=== PATIENT | female | born 1990 | race African-American/Black ===

== ENCOUNTER 2025-01-17 16:28 | Emergency (ER) | payer MEDICAID, SELFPAY ==
--- OUTSIDE RECORDS SUMMARY | 2025-01-17 16:31 | XMS_ITS | Referral Summary ---
Author Organization [facility] Address [address] [place] [address] Care Team Providers Care Equalizing Saw Operator Name Role Phone Karol García DANIEL Primary Care Provider [phone] Encounters Date Type Department Care Team Description 12/08/2024 10:19 AM CDT - 12/08/2024 10:48 AM CDT Emergency [facility] Emergency Department [address] [place] [id number] Fall, initial encounter (Primary Dx); Contusion of sacrum, initial encounter Discharge Disposition: Discharge to home or self care from Last 3 Months Allergies Active Allergy Reactions Criticality Noted Date Comments Losartan Dizziness Low 01/13/2022 Penicillins Rash Medium 01/13/2022 Medications polyethylene glycol (MIRALAX) 17 gram/dose powder Take 17 g by mouth daily 235 g 01/14/20 22 Active ipratropium-albut Agusto (DUO-NEB) 0.5-2.5 mg/3 mL nebulizer solutionIndicatio ns:Chronic Obstructive Pulmonary Disease with Bronchospasms Take 3 mL by nebulization every 4 (four) hours as needed for wheezing 120 mL 09/07/19 23 Active ketorolac (TORADOL) 10 mg tablet Take 1 tablet (10 mg total) by mouth every 6 (six) hours as needed for pain 20 tablet 03/21/20 24 Active cyclobenzaprine (FLEXERIL) 10 mg tablet Take 1 tablet (10 mg total) by mouth 3 (three) times a day as needed for muscle spasms 30 tablet 03/21/20 24 Active ketorolac (TORADOL) 10 mg tablet Take 1 tablet (10 mg total) by mouth every 6 (six) hours as needed for pain 20 tablet 12/09/19 25 Active acetaminophen (TYLENOL) 500 mg tablet Take 2 tablets (1,000 mg total) by mouth every 6 (six) hours as needed for pain 30 tablet 12/09/19 25 Active Active Problems No known active problems Social History Tobacco Use Types Packs/Day Years Used Date Smoking Tobacco: Never Tobacco Cessation:Counseling Given: Not Answered Alcohol Use Standard Drinks/Week Comments Not Currently 0 (1 standard drink = 0.6 oz pur e alcohol) socially Personal Safety Answer Date Recorded Have you ever been in or are you currently in a harmful physical or emotional relationship or is someone making you feel afraid or unsafe? Denies 12/08/2024 Comments No Sex and Gender Information Value Date Recorded Sex Assigned at Not on file Legal Sex Female 5:35 PM LINE CONSTRUCTION SUPERVISOR Gender Identity Female 10/16/2023 7:57 PM LINE CONSTRUCTION SUPERVISOR Sexual Orientation Straight 10/16/2023 7: 57 PM LINE CONSTRUCTION SUPERVISOR Last Filed Vital Signs Vital Sign Reading Time Taken Comments Blood Pressure 141/84 12/08/2024 10:46 AM CDT Pulse 65 12/08/2024 10:46 AM CDT Temperature 36.7 C (98.1 F) 12/08/2024 9:03 AM CDT Respiratory Rate 18 12/08/2024 10:4 6 AM CDT Oxygen Saturation 96% 12/08/2024 10: 46 AM CDT Inhaled Oxygen Concentration - - Weight 157.8 kg (347 lb 14.2 oz) 12/08/2024 9:03 AM CDT Height 172.7 cm (5' 8 ) 12/08/2024 9:03 AM CDT Body Mass Index 52.9 12/08/2024 9:03 AM CDT Plan of Treatment Not on file Procedures Procedure Name Priority Date/Time Associated Diagnosis Comments XR SACRUM COCCYX 2 OR MORE VIEWS ED 12/08/2024 9:35 AM CDT XR SPINE LUMBAR 2 OR 3 VIEWS ED 12/08/2024 9:35 AM CDT POCT GLUCOSE DEVICE Routine 12/08/2024 9 :06 AM CDT from Last 3 Months Results * XR Sacrum Coccyx 2 or More Views (12/08/2024 9:35 AM CDT) Anatomical Region Laterality Modality Pelvis, Body N/A Computed Radiogr aphy 12/08/2024 9:38 AM CDT Narrative 12/08/2024 9:40 AM CDT EXAM DESCRIPTION: XR SACRUM COCCYX 2 OR MORE VIEWS; XR SPINE LUMBAR 2 OR 3 VIEWS REASON FOR STUDY: pain Came to ED s/p fall last night. Reports was at work, sat in chair, and chair collapsed. C/o pain to tail bone and lower back. TECHNIQUE: XR SACRUM COCCYX 2 OR MORE VIEWS; XR SPINE LUMBAR 2 OR 3 VIEWS COMPARISON: CT abdomen and pelvis 01/13/2022. FINDINGS: Sacrum: Arcuate lines of the sacrum are intact. The sacroiliac joints and pubic symphysis maintained. The obturator rings are intact. No displaced sacral or coccygeal fracture is seen. The appearance of the sacrum and coccyx unchanged from the prior CT, the coccygeal segments are non fused. Lumbar spine: Comparison with radiographs from 03/21/2024. There is mild disc space narrowing most pronounced at L4-5 with mild endplate spurring. No fracture or aggressive osseous lesion is seen. Posterior elements are intact. IMPRESSION: No evidence of an acute osseous abnormality of the sacrum or coccyx. Mild lumbar spondylosis most pronounced at L4-5. If symptoms persist despite conservative management, could consider CT imaging. THIS IS AN ELECTRONICALLY VERIFIED FINAL REPORT 12/08/2024 9:40 AM - Electronically signed by Jay Jimenez M.D. CH: BEV Report ID: [id number] Reading Location: [id number] Procedure Note Jay Jimenez Jr., MD - 12/08/2024 EXAM DESCRIPTION: XR SACRUM COCCYX 2 OR MORE VIEWS; XR SPINE LUMBAR 2 OR3 VIEWS REASON FOR STUDY: pain Came to ED s/p fall last night. Reports was at work, sat in chair, andchair collapsed. C/o pain to tail bone and lower back. TECHNIQUE: XR SACRUM COCCYX 2 OR MORE VIEWS; XR SPINE LUMBAR 2 OR 3 VIEWS COMPARISON: CT abdomen and pelvis 01/13/2022. FINDINGS: Sacrum: Arcuate lines of the sacrum are intact. The sacroiliac joints and pubic symphysis maintained. The obturator rings are intact.No displaced sacral or coccygeal fracture is seen. The appearance of thesacrum and coccyx unchanged from the prior CT, the coccygeal segments are nonfused. Lumbar spine: Comparison with radiographs from 03/21/2024. There is milddisc space narrowing most pronounced at L4-5 with mild endplate spurring. No fracture or aggressive osseous lesion is seen. Posterior elements areintact. IMPRESSION: No evidence of an acute osseous abnormality of the sacrum or coccyx. Mild lumbar spondylosis most pronounced at L4-5. If symptoms persist despite conservative management, could consider CT imaging. THIS IS AN ELECTRONICALLY VERIFIED FINAL REPORT 12/08/2024 9:40 AM - Electronically signed by Jay Jimenez M.D. CH: BEV Report ID: [id number] Reading Location: [id number] Eden Quan MD IMG XR PROCEDURES Shanon l Result * XR Spine Lumbar 2 or 3 Views (12/08/2024 9:35 AM CDT) Anatomical Region Laterality Modality Spine N/A Computed Radiogr aphy 12/08/2024 9:3 8 AM CDT Narrative 12/08/2024 9:40 AM CDT EXAM DESCRIPTION: XR SACRUM COCCYX 2 OR MORE VIEWS; XR SPINE LUMBAR 2 OR 3 VIEWS REASON FOR STUDY: pain Came to ED s/p fall last night. Reports was at work, sat in chair, and chair collapsed. C/o pain to tail bone and lower back. TECHNIQUE: XR SACRUM COCCYX 2 OR MORE VIEWS; XR SPINE LUMBAR 2 OR 3 VIEWS COMPARISON: CT abdomen and pelvis 01/13/2022. FINDINGS: Sacrum: Arcuate lines of the sacrum are intact. The sacroiliac joints and pubic symphysis maintained. The obturator rings are intact. No displaced sacral or coccygeal fracture is seen. The appearance of the sacrum and coccyx unchanged from the prior CT, the coccygeal segments are non fused. Lumbar spine: Comparison with radiographs from 03/21/2024. There is mild disc space narrowing most pronounced at L4-5 with mild endplate spurring. No fracture or aggressive osseous lesion is seen. Posterior elements are intact. IMPRESSION: No evidence of an acute osseous abnormality of the sacrum or coccyx. Mild lumbar spondylosis most pronounced at L4-5. If symptoms persist despite conservative management, could consider CT imaging. THIS IS AN ELECTRONICALLY VERIFIED FINAL REPORT 12/08/2024 9:40 AM - Electronically signed by Jay Jimenez M.D. CH: Report ID: [id number] Reading Location: [id number] Procedure Note Jay Jimenez Jr., MD - 12/08/2024 EXAM DESCRIPTION: XR SACRUM COCCYX 2 OR MORE VIEWS; XR SPINE LUMBAR 2 OR3 VIEWS REASON FOR STUDY: pain Came to ED s/p fall last night. Reports was at work, sat in chair, andchair collapsed. C/o pain to tail bone and lower back. TECHNIQUE: XR SACRUM COCCYX 2 OR MORE VIEWS; XR SPINE LUMBAR 2 OR 3 VIEWS COMPARISON: CT abdomen and pelvis 01/13/2022. FINDINGS: Sacrum: Arcuate lines of the sacrum are intact. The sacroiliac joints and pubic symphysis maintained. The obturator rings are intact.No displaced sacral or coccygeal fracture is seen. The appearance of thesacrum and coccyx unchanged from the prior CT, the coccygeal segments are nonfused. Lumbar spine: Comparison with radiographs from 03/21/2024. There is milddisc space narrowing most pronounced at L4-5 with mild endplate spurring. No fracture or aggressive osseous lesion is seen. Posterior elements areintact. IMPRESSION: No evidence of an acute osseous abnormality of the sacrum or coccyx. Mild lumbar spondylosis most pronounced at L4-5. If symptoms persist despite conservative management, could consider CT imaging. THIS IS AN ELECTRONICALLY VERIFIED FINAL REPORT 12/08/2024 9:40 AM - Electronically signed by Jay Jimenez M.D. CH: BEV Report ID: [id number] Reading Location: [id number] us Eden Quan MD IMG XR PROCEDURES Shanon l Result * POCT glucose (12/08/2024 9:06 AM CDT) [facility] Signature Glucose, POC 111 70 - 199 mg/dL Comment:Testing performed by : [facility], [address] [place] [address]., [id number] Blood 12/08/2024 9:06 AM CDT 12/08/2024 9:06 AM CDT us Notinfile Unknown LAB POCT ORDERABLES - DEVICE F inal Result [facility] [address] [facility] [place] [address] from Last 3 Months Insurance [facility] [employer] BLUE ACCESS OOS Member Subscriber Plan / Payer (Ef fective 2021-Present) Name:ChaudhariBelen Relation to Subscriber:Self Name:Chaudhari, Belen Orourke Payer ID:[id number] (NAIC) Group ID:[id number] Type:[facility] Address: [address] [employer] BLUE ACCESS OOS Care Teams Equalizing Saw Operator Relationship Specialty Start Date End Date Karol García NP PCP - General 10/26/19
--- OUTSIDE RECORDS SUMMARY | 2025-01-17 16:31 | XMS_ITS | Clinical Summary ---
Author Organization [facility] Address [address] [place] [address] Care Team Providers Care Coke Drawer Hand Name Role Phone Karol García APRN-DOOR CLAMP OPERATOR Primary Care Provider Source Comments [facility],non-owned Affiliates and Associated Physician Practices is amultiple site organization consisting of ambulatory clinics and hospital sitesin [place], [place], [place] and [place]. This disclosure is being madepursuant to the Care Everywhere program and may not contain all information available regarding this patient. Last updated 18.[facility] Allergies Active Allergy Reactions Criticality Noted Date Comments Losartan Dizziness Medium 01/17/2019 Penicillins Cough 09/22/2017 Medications * Be aware that medications may not be up to date on this document. Alwaysverify current medications with the patient. spironolactone (ALDACTONE) 100 MG tablet Take 1 (one) tablet by mouth once daily 9 Active atenolol (TENORMIN) 100 MG tablet Take 1 (one) tablet by mouth once daily Active metFORMIN ER 24hr (GLUCOPHAGE XR) 500MG tablet Take 1 (one) tablet by mouth 3 times daily Active SYMBICORT 160-4.5 MCG/ACT inhaler INHALE 2 PUFFS INTO THE LUNGS TWICE DAILY 1 Active sertraline (Zoloft) 100 MG tablet 2 Active hydrOXYzine pamoate (Vistaril) 25 MG capsule TAKE 1 CAPSULE BY MOUTH THREE TIMES DAILY NEEDED 1 Active albuterol HFA (Proventil; Ventolin; Proair) 108 (90 Base) MCG/ACT inhaler Inhale 1 (one) puff to 2 (two) puffs by mouth every 6 hours as needed 4 Active amLODIPine (Norvasc) 5 MG tablet Take 1 (one) tablet by mouth once daily 4 Active Trulicity 4.5 MG/0.5ML injection Inject 4.5 (four and one-half) mg subcutaneously every 7 days 4 Active fluticasone propionate (Flonase) 50 MCG/ACT nasal spray [place] 1 (one) spray into each nostril as needed 4 Active meclizine (Antivert) 25 MG tablet Take 1 (one) tablet by mouth 3 times daily as needed 4 Active Active Problems Problem Noted Date Diagnosed Date Post-concussion headache 07/11/2019 Environmental and seasonal allergies 11/30/2018 Reactive airway disease 11/30/2018 Allergic rhinitis 03/10/2017 Morbid obesity 02/08/2017 CHLOE (obstructive sleep apnea) 02/08/2017 Encounter for preventive health examination 01/05 Resolved Problems Problem Noted Date Diagnosed Date Resolved Date Asthma exacerbation 02/09/2017 03/09/20 19 Immunizations Immunization Administration Dates Next Due FaceAlerta primary monoval ent 12+ yr 0.3mL Purple cap 06/22/2021 FLU VACCINE QUAD IIV4 SPLIT 0.25 ML IM 5 FLU VACCINE TRI IIV3 SPLIT I M (FLUVIRIN) 06/23/2021 HEP A PED/ADULT VACCINE 07/26/2007 INFLUENZA VACCINE 06/22/2021, 9,06/27/2018,04/22,07/07/2015,07/26/2007 INFLUENZA VACCINE, QUADR. (F LUZONE; FLULAVAL; FLUARIX; AFLURIA QUADRIVALENT; 6MO+), 0.5 ML (IIV4) 07/13/2022,06/27/2018,04/22/2017 MENINGOCOCCAL VACCINE 07/26/2007 PNEUMOCOCCAL PCV20 CONJ VAC IM 11/30/2021 TDAP (7yrs+) 09/25/2010 Td (Adult), 2 Lf Tetanus Tox oid, Adsorbed, Pf 07/26/2007 VARICELLA 07/26/2007 Social History Tobacco Use Types Packs/Day Years Used Date Smoking Tobacco: Never Smokeless Tobacco: Never Tobacco Cessation:Counseling Given: Not Answered Alcohol Use Standard Drinks/Week Comments Yes 0 (1 standard drink = 0.6 oz pur e alcohol) rarely PHQ-2 Answer Date Recorded Patient Health Questionnaire-2 Score 0 12/25/2023 Comments No Sex and Gender Information Value Date Recorded Sex Assigned at Female 07/08/2021 10:26 AM CDT Legal Sex Female 9:03 PM CDT Gender Identity Female 07/08/2021 10:26 AM CDT Sexual Orientation Straight 07/08/2021 10 :26 AM CDT Last Filed Vital Signs Vital Sign Reading Time Taken Comments Blood Pressure 144/72 12/26/2023 10:04 AM CDT Pulse 74 12/26/2023 10:04 AM CDT Temperature 36.8 C (98.2 F) 12/26/2023 10:04 AM CDT Respiratory Rate 16 12/26/2023 10:0 4 AM CDT Oxygen Saturation 100% 12/26/2023 10: 04 AM CDT Inhaled Oxygen Concentration - - Weight 158.6 kg (349 lb 11.2 oz) 2023 10:04 AM CDT Height 172.7 cm (5' 8 ) 12/26/2023 10:0 4 AM CDT Body Mass Index 53.17 12/26/2023 10:04 AM CDT Plan of Treatment Health Maintenance Due Date Last Done Comments PAP SMEAR 1989 HIV SCREENING 2004 HEPATITIS C SCREENING 07/23/2007 HEPATITIS B VACCINE (1 of 3 - 19+ 3-dose series) 2008 DTAP/TDAP/TD VACCINES (3 - Td or Tdap) 09/25/2020 09/25/2010, 07/26/2007 COVID-19 VACCINE ( season) 2024 11/23/2022, 06/23/2021, 06/22/2021, Additional history exists DEPRESSION SCREENING 09/05/2024 12/26/2023 INFLUENZA VACCINE (Season Ended) 2025 07/13/2022, 06/23/2021, 06/22/2021, Additional history exists ZOSTER VACCINE (1 of 2) 2039 MENINGOCOCCAL GROUPS A/C/Y/W VACCINE Completed 07/26/2007 PNEUMOCOCCAL VACCINE Aged Out 11/30/2021 No long er eligible based on patient's age to complete this topic HIB VACCINE Aged Out No longer eligi ble based on patient's age to complete this topic HPV VACCINE Aged Out No longer eligi ble based on patient's age to complete this topic MENINGOCOCCAL (Group B) VACCINE SHARED DECISION-MAKING Aged Out No longer eligible based on patient's age to complete this topic Insurance MEDICAID - OUT OF [facility] Advance Directives Documents on File Type Date Recorded Patient Sales Account Director Expl anation Adv Directive/Living Will/POA 04/10/2016 n/a Care Teams Coke Drawer Hand Relationship Specialty Start Date End Date Karol García APRN-CNP [address] [facility] [address] [place], [place] [id number] PCP - General 02/20/19
--- OUTSIDE RECORDS SUMMARY | 2025-01-17 16:31 | XMS_ITS | Clinical Summary ---
Author Organization [facility] Address [address] [place] [address] Care Team Providers Care Help Desk Intern Name Role Phone Harrison Patel MD Primary Care Provider [phone] Allergies Active Allergy Reactions Criticality Noted Date Comments Losartan Dizziness Medium 01/17/2019 Penicillins Cough 09/22/2017 Medications spironolactone 100 MG tablet Take 100 mg by mouth daily. Active metFORMIN 500 MG 24 hr tablet TAKE 1 TABLET BY MOUTH IN THE MORNING AND TAKE 2 TABLETS IN THE EVENING 0 8 Active atenolol 100 MG tablet Take 100 mg by mouth daily. 0 8 Active amitriptyline 50 MG tablet Take 50 mg by mouth nightly at bedtime. 1 Active ARIPiprazole 2 MG tablet Take 2 mg by mouth nightly at bedtime. at bedtime 1 Active busPIRone 5 MG tablet Take 5 mg by mouth 2 (two) times daily. 1 Active VRAYLAR 3 MG Cap TAKE ONE CAPSULE BY MOUTH EVERY DAY AT BEDTIME FOR 14 DAYS 2 Active TRULICITY 0.75 MG/0.5ML injection ADMINISTER 0.75 MG UNDER THE SKIN EVERY WEEK 1 Active escitalopram 10 MG tablet Take 10 mg by mouth daily. 1 Active hydrOXYzine 10 MG tablet 1 Active montelukast 10 MG tablet Take 10 mg by mouth daily. 2 Active sertraline 50 MG tablet Take 50 mg by mouth daily. 2 Active albuterol sulfate HFA 108 (90 Base) MCG/ACT inhalerIndication s:Mild intermittent reactive airway disease without complication (HHS/HCC) INHALE 1 OR 2 PUFFS BY MOUTH EVERY 4 HOURS NEEDED FOR WHEEZING 8.5 g 1 2 Active budesonide-formot lorie (SYMBICORT) 80-4.5 MCG/ACT inhalerIndication s:Mild intermittent reactive airway disease without complication (HHS/HCC) Inhale 2 puffs into the lungs 2 (two) times daily. 10.2 g 11 2 Active methylPREDNISolon e TYRONE, (MEDROL DOSEPAK) 4 MG tablet 6 TABLETS ON DAY ONE, 5 TABLETS DAY TWO, 4 TABLETS DAY THREE, 3 TABLETS DAY FOUR, 2 TABLETS DAY FIVE, AND 1 TABLET DAY SIX 1 each 2 Active budesonide-formot lorie (SYMBICORT) 80-4.5 MCG/ACT inhalerIndication s:Mild intermittent reactive airway disease without complication (HHS/HCC) Inhale 2 puffs into the lungs 2 (two) times daily. 10.2 g 3 3 Active fluticasone propionate (FLONASE) 50 MCG/ACT nasal sprayIndications: Environmental and seasonal allergies INSTILL TWO SPRAYS INTO EACH NOSTRIL EVERY DAY 16 mL 1 3 Active budesonide-formot lorie (SYMBICORT) 80-4.5 MCG/ACT inhalerIndication s:Mild intermittent reactive airway disease without complication (HHS/HCC) INHALE TWO PUFFS BY MOUTH TWICE DAILY 10.2 g 3 3 Active Active Problems Problem Noted Date Diagnosed Date Mild intermittent reactive a irway disease without complication (HHS/HCC) 11/30/2018 Environmental and seasonal allergies 11/30/2018 Allergic rhinitis 03/10/2017 Asthma exacerbation (HHS/HCC) 02/09/2017 Morbid obesity 02/08/2017 CHLOE (obstructive sleep apnea) 02/08/2017 Resolved Problems Problem Noted Date Diagnosed Date Resolved Date Encounter for preventive health examination 02/02/2017 05/16/2020 Encounters Date Type Department Care Team Description 11/30/2024 Scan [facility] Scanned, Doc Med Group from Last 3 Months Immunizations Immunization Administration Dates Next Due Hepatitis A 07/26/2007 Hepatitis A (Generic) 07/26/2007 Influenza (Generic) 06/11/2019, 8,04/22/2017,07/07/2015,2006 Influenza Adult (Generic) 06/27/2018,04/22/2017 Meningococcal (Generic) 07/26/2007 Td 07/26/2007 Td (TDVAX) 07/26/2007 Tdap (Generic) 09/25/2010 Varicella (Varivax) 07/26/2007 Varicella Vaccine 07/26/2007 Family History Medical History Relation Comments Hypertension Father Hypertension Mother Relation Status Comments Father Alive Mother Alive Social History Tobacco Use Types Packs/Day Years Used Date Smoking Tobacco: Never Smokeless Tobacco: Never Tobacco Cessation:Counseling Given: Not Answered Alcohol Use Standard Drinks/Week Comments Not Currently 0 (1 standard drink = 0.6 oz pur e alcohol) socially AUDIT-C Answer Date Recorded Frequency of Alcohol Consumption Monthly or less 11/30/2018 Average Number of Drinks Not on file 019 Frequency of Binge Drinking Not on file 11/04 PHQ-2 Answer Date Recorded PHQ-2 Score - If the patient scores above 3, please move on to questions 3-9 2 05/05/2022 Comments No Sex and Gender Information Value Date Recorded Sex Assigned at Not on file Legal Sex Female 7:32 PM CDT Gender Identity Female 11/09/2021 6:51 AM EXPANSION ENVELOPE MAKER HAND Sexual Orientation Straight 11/09/2021 6: 51 AM EXPANSION ENVELOPE MAKER HAND Last Filed Vital Signs Vital Sign Reading Time Taken Comments Blood Pressure 162/96 09/02/2022 9:28 PM EXPANSION ENVELOPE MAKER HAND Pulse 69 09/02/2022 9:28 PM EXPANSION ENVELOPE MAKER HAND Temperature 35.7 C (96.2 F) 09/02/2022 9:28 PM EXPANSION ENVELOPE MAKER HAND Respiratory Rate 18 09/02/2022 9:28 PM EXPANSION ENVELOPE MAKER HAND Oxygen Saturation 96% 09/02/2022 9:28 PM EXPANSION ENVELOPE MAKER HAND Inhaled Oxygen Concentration - - Weight 169.2 kg (373 lb 0.3 oz) 09/02/2022 9:28 PM EXPANSION ENVELOPE MAKER HAND Height 172.7 cm (5' 8 ) 09/02/2022 9:28 PM EXPANSION ENVELOPE MAKER HAND Body Mass Index 56.72 09/02/2022 9:28 PM EXPANSION ENVELOPE MAKER HAND Plan of Treatment Health Maintenance Due Date Last Done Comments Cervical Cancer Screening Pa p Smear (Age 30 to 64) Every 3 Years 1989 Annual Physical 1992 Hepatitis C 2007 Hepatitis B Vaccines (1 of 3 - 19+ 3-dose series) 2008 Pneumococcal Vaccine: Pediatrics (0 to 5 Years) and At-Risk Patients (6 to 49 Years) (1 of 2 - PCV) 2008 Cervical Cancer Screening Pa p with HPV Testing (Age 30 to 64) Every 5 Years 2019 Cervical Cancer Screening wi th HPV 2019 DTaP, Tdap and Td Vaccines ( 3 - Td or Tdap) 09/25/2020 09/25/2010, 07/26/2007, 07/26/2007 COVID-19 Vaccine (2023-2 5 season) 2024 PHQ-2 (Physician [place]) 09/05/2024 Meningococcal Vaccine Aged Out 07/26/2007 No evan layne eligible based on patient's age to complete this topic HPV Vaccines Aged Out No longer eligi ble based on patient's age to complete this topic Meningococcal B Vaccine Aged Out No l onger eligible based on patient's age to complete this topic RSV Immunizations Under 20 Months Aged Out No longer eligible b ased on patient's age to complete this topic Insurance [facility] Care Teams Help Desk Intern Relationship Specialty Start Date End Date Harrison Patel MD [address] [place] [id number] PCP - General PULMONARY DISEASE 09/02/22
--- OUTSIDE RECORDS SUMMARY | 2025-01-17 16:31 | XMS_ITS | Clinical Summary ---
Author Organization [facility] Address [address] [place] [address] Care Team Providers Care Tso Name Role Phone Karol García ADNIEL Primary Care Provider [phone] Allergies Active Allergy Reactions Criticality Noted Date [...] Active Active Problems No known active problems Encounters Date Type Department Care Team Description 12/08/2024 10:19 AM CDT - 12/08/2024 10:48 AM CDT Emergency [facility] Emergency Department [address] [place] [address] Fall, initial encounter (Primary Dx); Contusion of sacrum, initial encounter Discharge Disposition: Discharge to home or self care from Last 3 Months Medical History Medical History Date Comments PCOS (polycystic ovarian syndrome) Diabetes (HCC) Depression Migraines Obesity Hypertension Acne Social History Tobacco Use Types Packs/Day Years [...] on file Legal Sex Female 5:35 PM [employer] Gender Identity Female 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 Sexual Orientation 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 Obstetrics History Last Filed Vital Signs Vital Sign Reading [...] 12/08/2024 9:03 AM CDT Plan of Treatment Health Maintenance Due Date Last Done Comments Cervical Cancer Screening 1989 Depression Screening 1989 Hepatitis C Screening 1989 Hepatitis B Screening 2007 Regular Well Visit/Exam 18-64 2007 Varicella Vaccines (2 of 2 - 13+ 2-dose series) 08/23/2007 07/26/2007 Covid-19 Vaccine ( season) 2024 06/23/2021, 05/26/2021, 05/05/2021 DTaP/Tdap/Td Vaccine (3 - Td or Tdap) 08/27/2034 08/27/2024, 09/25/2010, 07/26/2007 Pneumococcal vaccine <65 Completed 11/30/2021 Influenza Vaccine Completed 08/27/2024, , 11/23/2022, Additional history exists HPV Vaccines Aged Out No longer eligi ble based on patient's age to complete this topic Procedures Procedure Name Priority Date/Time Associated Diagnosis [...] by Jay Jimenez M.D. CH: Report ID: [id number] Reading Location: [place] [address] Procedure Note Jay Jimenez Jr., MD - [...] 9:40 AM - Electronically signed by Jay BoatengD. CH: BEV Report ID: [id number] Reading Location: [id number] Eden Quan MD IMG XR PROCEDURES Shanon l Result * XR Spine Lumbar 2 or 3 Views (12/08/2024 9:35 AM CDT) Anatomical Region Laterality Modality Spine N/A Computed Radiogr aphy 12/08/2024 9:38 AM [...] Jay Jimenez M.D. CH: BEV Report ID: [id number] Reading Location: [id number] Procedure Note Jay Jimenez Jr., MD - [...] by Jay Jimenez M.D. CH: Report ID: [id number] Reading Location: [place] [address] us Eden Quan MD IMG XR PROCEDURES Shanon l Result * POCT glucose (12/08/2024 9:06 AM CDT) [facility] Signature Glucose, POC 111 70 - 199 mg/dL Comment:Testing performed by : [facility], [address] [place] [address], [place]., [address] Blood 12/08/2024 9:06 AM CDT 12/08/2024 9:06 AM CDT us Notinfile Unknown LAB POCT ORDERABLES - DEVICE F inal Result [facility] [address] [facility] Department [place] [address] from Last 3 Months Insurance [facility] IDPA Gema ACCESS [facility] IDPA [facility] Care Teams Tso Relationship Specialty Start Date End Date Karol García NP PCP - General 10/26/19
--- OUTSIDE RECORDS SUMMARY | 2025-01-17 16:31 | XMS_ITS | Data Portability ---
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 by intrader mal route. 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 Not Available Not Available spironola ctone 100 mg tablet TAKE 1 TABLET BY MOUTH TWICE A DAY 2024 active Appt schedule d 02/25/25 Not Available Not Available Not Available metoprolo l succinate ER 100 mg tablet,ex tended [id number]|2025-01-17 18:20:14|2025-01-17 18:20:14|ED.CHESTPAIN||||"HPI - Chest Pain General Chief Complaint: Chest Pain Stated Complaint: LUQ abd/Chest and upper back pain x 1 wk Time Seen by Provider: 01/17/25 17:35 History of Present Illness HPI narrative: Patient presenting here with 1 week of intermittent left-sided epigastric pain that goes up into her chest and sometimes to her upper back, comes and goes, has been increasing in frequency. She wants to make sure it is not her heart. No focal numbness or weakness. Related Data Allergies Allergy/AdvReac Type Severity Reaction Status Date / Time losartan Allergy Severe Vertigo Verified 01/17/25 16:30 penicillin Allergy Unknown Cough Uncoded 05/10/18 12:22 Review of Systems Review of Systems: All systems reviewed & are unremarkable except as noted in HPI and below Exam Narrative: EXAMINATION OF ORGAN SYSTEMS/BODY AREAS: Constitutional: Vital signs per nursing GENERAL:[No acute distress, non-toxic appearing.] HEAD: Normal with no signs of head trauma. EYES: EOMI, conjunctiva normal ENT: Hearing grossly intact LUNGS: Nonlabored breathing. HEART: [Regular rate and rhythm], normal radial pulses ABD: [Soft], [nontender to palpation] EXT: Normal range of motion SKIN: [No rashes or lesions.] NEURO: [Alert and oriented x 3. No gross focal sensory or strength deficits.] PSYCH: Normal affect MDM - Chest Pain MDM Narrative Medical decision making narrative: ED COURSE AND MEDICAL DECISION MAKIN-year-old female presenting with chest pain. EKG done in triage negative for acute ischemic changes. Cardiac workup is initiated. EKG: Performed in triage and interpreted by me. Normal sinus rhythm. Rate 68. Normal axis. IA normal. QRS duration normal. QTc normal. No pathologic Q waves. No ST segment elevation or depression to suggest acute ischemia. No RV strain pattern. HEART score is 0 with no acute ischemic changes on EKG and negative troponin making ACS unlikely. Negative PERC making PE unlikely. Presentation not consistent with dissection or aneurysm without pulse deficits risk factors, and patient extremely well-appearing here, resting on her stomach looking at her phone in no distress whatsoever. CXR negative for mediastinal widening. No abdominal pain or signs of sepsis that would be concerning for esophageal perforation or mediastinitis. No cardiomegaly or JVD to suggest pericardial effusion/tamponade. HEART Score: [0]. (Risk of major adverse cardiac events over 6 weeks: Score of 0-3 is low risk <2% ; Score of 4-6 is moderate risk ~12-15%; Score of 7-12 is high risk ~50%). I do suspect most likely gastritis. On repeat evaluation just prior to discharge, the patient is no acute distress. I had a long discussion with the patient and with shared decision making, she is comfortable with outpatient management. She was given clear return instructions by myself in person as well as on discharge paperwork. Procedures: Pulse oximetry interpretation - not hypoxic. EKG interpretation. Review of medical records. Lab Data 01/17/25 17:04 01/17/25 17:04 Labs: Lab Results 01/17/25 Range/Units 17:04 WBC 8.6 (4.5-10.0) K/mm3 RBC 4.15 L (4.2-5.4) M/mm3 Hgb 12.0 (12.0-15.0) g/dL Hct 36.8 L (37.0-47.0) % MCV 88.7 (80-100) fl MCH 28.9 (26-34) pg MCHC 32.6 (32-36) g/dl RDW 13.4 (11.5-14.5) % Plt Count 208 (150-375) k/mm3 MPV 9.2 (7.4-10.4) fl Immature Gran % (Auto) 0.2 (0-0.5) % Neut % (Auto) 56.1 (45.5-73.1) % Lymph % (Auto) 33.8 (18.3-44.2) % [place] % (Auto) 5.6 (2.6-8.5) % Eos % (Auto) 3.5 (0-4.4) % Baso % (Auto) 0.8 (0.2-1.2) % Lymph # (Auto) 2.92 (0.9-3.2) K/mm3 [place] # (Auto) 0.5 (0.1-0.6) K/mm3 Eos # (Auto) 0.3 (0-0.3) K/mm3 Baso # (Auto) 0.1 (0.0-0.1) K/mm3 Abs Immat Gran (auto) 0.02 (0.00-0.031) K/mm3 Absolute Neuts (auto) 4.8 (1.3-6.7) K/mm3 Absolute Nucleated RBC 0.000 (0.0-0.012) K/mm3 Nucleated RBC % 0.0 (0.0-0.2) % PT 14.4 (11.1-14.7) Seconds INR 1.1 APTT 30.6 (22.3-36.8) Seconds Sodium 138 (137-145) mmol/L Potassium 3.7 (3.4-5.0) mmol/L Chloride 104 (98-107) mmol/L Carbon Dioxide 26 (22-30) mmol/L Anion Gap 8 (4-12) mmol/L BUN 14 (7-17) mg/dL Creatinine 0.82 (0.7-1.0) mg/dL Estim Creat Clear Calc 132 ml/min Estimated GFR > 60 (59 - ) Glucose 99 (65-110) mg/dL Calcium 9.8 (8.4-10.2) mg/dL Total Bilirubin 0.6 (0.2-1.3) mg/dL AST 29 (14-36) U/L ALT 21 (6-35) U/L Alkaline Phosphatase 59 (38-126) U/L Troponin I < 0.012 (0.000-0.034) ng/mL Total Protein 8.0 (6.3-8.2) g/dL Albumin 4.4 (3.5-5.1) g/dL Lipase 50 (23-300) U/L Discharge Plan Discharge Clinical Impression: Atypical chest pain Patient Disposition: Home Condition: Stable Instructions: Chest Pain (ED), Diet for Stomach Ulcers and Gastritis (ED) Additional Instructions: Please follow up with your doctor; you can always return for any further issues. Try to avoid any fried or greasy foods, spicy foods, caffeine, alcohol. Patient Language: [place] Prescriptions: New famotidine 20 mg tablet 20 mg PO DAILY Qty: 30 0RF alum-mag hydroxide-simeth [Maalox Advanced] 200-200-20 mg/5 mL suspension 10 ml PO QID PRN (Reason: dyspepsia) Qty: 200 0RF Rx Instructions: administer between meals and at bedtime ondansetron 4 mg tablet,disintegrating 4 mg PO Q8H PRN (Reason: nausea and vomiting) Qty: 10 0RF Follow-up/Referrals: Alirio,Bebo Parry MD [Primary Care Provider] - "
--- OUTSIDE RECORDS SUMMARY | 2025-01-17 16:31 | XMS_ITS | Data Portability ---
Author Organization [employer] , [facility] Address [address] [place] [address] Assessment No assessment recorded. Plan of Treatment Reminders Order Date Submit Date Provider Last Modified By Organization Details Last Modified Time Details Appointments None recorded. Lab bacterial vaginosis + vaginitis panel, vaginal 2024 025 [employer] [facility], [address] [place], [address], 5 12:55:10 biopsy, tissue - 1. 2 oclock ectocervix 2. 11 oclock ectocervix 2024 025 [employer] [facility], [address] [place], [address], 5 23:11:52 test, urine 2024 025 [email or web address] 1 [facility], [address] [place], [address], 5 17:41:03 HPV E6+E7 mRNA, qualitative PCR, cervix 2024 025 [employer] [facility], [address] [place], [address], 5 18:22:24 pap, LB 2024 025 [employer] [facility], [address] [place], [address], 10:52:15 Referral None recorded. Procedures None recorded. Surgeries None recorded. Imaging US, transvagina l 2024 025 [email or web address] Not available 16:33:15 US, transvagina l 2024 025 MOLLY Not available 19:14:24 Medication Orders None recorded. Patient TargetsNo targets recorded. Patient Instructions Encounter Date Encounter Id Patient Instructions Last Modified By Organization Details Last Modified Time 09/18/2024 [id number] body mass index: care instructions Not available 09/18/2024 17:17:44 learning about control Not available 09/18/2024 17:17:44 Reason for Referral None Reported. Results Created Date Observation Date Name Description Value Unit Range Abnormal Flag Note LastModifiedBy Organization Detail LastModifiedTime 09/18/1909/21/2024 HPV GENOT YPE HPV 16 Negati ve negati ve normal [place], [address], 09/21/2024 18:22:24 09/18/19 25 09/21/2024 HPV GENOT YPE HPV 18/45 Negati ve negati ve normal Assay can diffe renti ate HPV 16 from HPV 18 and/o r HPV 45. But canno t diffe renti ate betwe en 18 and 45. [place], [address], 09/21/2024 18:22:24 09/18/19 25 09/20/2024 HPV HIGH RISK HPV high risk POSITI VE negati ve abnormal The HPV High Risk assay is inten ded for use as co-te sting with cytol ogy and not as a subst itute for regul ar cervi julianne cytol ogy scree amor. This assay is not inten ded for use as a scree amor devic e for women under age 30 with shelley l cervi julianne cytol ogy. [place], [address], 09/21/2024 18:22:25 09/18/19 25 09/24/2024 THINP REP TIS PAP clinical information: normal None given Not Available [address], [address], 09/24/2024 10:52:15 09/18/19 25 09/24/2024 THINP REP TIS PAP LMP: normal None given Not Available [address], [address], 09/24/2024 10:52:15 09/18/19 25 09/24/2024 THINP REP TIS PAP prev. Pap: normal None given Not Available [address], [address], 09/24/2024 10:52:15 09/18/19 25 09/24/2024 THINP REP TIS PAP prev. BX: normal None given Not Available [address], [address], 09/24/2024 10:52:15 09/18/19 25 09/24/2024 THINP REP TIS PAP source: normal Cervi x Not Available [address], [address], 09/24/2024 10:52:15 09/18/19 25 09/24/2024 THINP REP TIS PAP statement of adequacy: normal Satis facto ry for evalu ation . Endoc ervic al/tr ansfo rmati on zone compo nent prese nt. Age and/o r menst rual statu s not provi ded Not Available [address], [address], 09/24/2024 10:52:15 09/18/19 25 09/24/2024 THINP REP TIS PAP general categorizati on: abnormal Cytol ogy Resul ts: Epith elial Cell Abnor malit y Not Available [address], [place], [address], 09/24/2024 10:52:15 09/18/19 25 09/24/2024 THINP REP TIS PAP interpretati on/result: abnormal Low Grade Squam ous Intra epith elial Lesio n (LSIL ) Not Available [address] [address] [place], [address], 09/24/2024 10:52:15 09/18/19 25 09/24/2024 THINP REP TIS PAP comment: normal This Pap test has been evalu ated with compu ter yobani nahid techn ology . Sugge st clini julianne corre latio n and follo w-up as clini byron appro priat e Not Available [address] [address] [place], [address], 09/24/2024 10:52:15 09/18/19 25 09/24/2024 THINP REP TIS PAP cytotechnolo gist: normal TLS, CT( CP) CT Scree amor Locat ion: [address] [address] [facility] [address] Not Available [address] [address] [place], [address], 09/24/2024 10:52:15 09/18/19 25 09/24/2024 THINP REP TIS PAP pathologist: normal Shelley bryant M.D., Board Certi fied in Anato daria Patho logy and Cytop athol ogy. Phone : [phone] (elec troni c signa ture) Not Available [address] [address] [place], [address], 09/24/2024 10:52:15 09/18/19 25 09/24/2024 THINP REP TIS PAP comment EXPLA NATOR Y NOTE: The Pap is a scree amor test for cervi julianne cance r. It is not a diagn ostic test and is subje ct to false negat ayla and false posit ayla resul ts. It is most relia ble when a satis facto ry sampl e, regul jayce obtai rajeev, is submi tted with relev ant clini julianne findi ngs and histo ry, and when the Pap resul t is evalu ated along with histo pedro and curre nt clini julianne infor matio n. Not Available [address] [address] [place], [address], 09/24/2024 10:52:15 10/09/19 25 10/10/2024 VAGIN ITIS PLUS STD PANEL bacterial vaginosis BV POS negati ve abnormal Not Available [address], [address], 10/10/2024 12:55:10 10/09/19 25 10/10/2024 VAGIN ITIS PLUS STD PANEL jim species C. spp neg negati ve normal Not Available [address], [address], 10/10/2024 12:55:10 10/09/19 25 10/10/2024 VAGIN ITIS PLUS STD PANEL jim glabrata C. gla neg negati ve normal Not Available [address], [address], 10/10/2024 12:55:10 10/09/19 25 10/10/2024 VAGIN ITIS PLUS STD PANEL trichomonas vaginalis CV/TV TRICH neg negati ve normal Not Available [address], [address], 10/10/2024 12:55:10 10/09/19 25 10/10/2024 VAGIN ITIS PLUS STD PANEL chlamydia trachomatis CT neg negati ve normal This repor t is inten ded for us in clini julianne monit oring and manag ement of patie nts. It is not inten ded for use in medic al-le gal appli catio n. Not Available [address], [address], 10/10/2024 12:55:10 10/09/19 25 10/10/2024 VAGIN ITIS PLUS STD PANEL neisseria gonorrhoeae GC neg negati ve normal This repor t is inten ded for us in clini julianne monit oring and manag ement of patie nts. It is not inten ded for use in medic al-le gal appli catio n. Not Available [employer] [address] [place], [address], 10/10/2024 12:55:10 10/09/19 25 10/11/2024 TISSU E PATHO LOGY clinical information LGSIL Not Available [address] [address] [place], [address], 10/11/2024 23:11:52 10/09/19 25 10/11/2024 TISSU E PATHO LOGY pathologist Alyssa singletary, D.OChucho, Board Certi fied in Anato daria Patho logy, Clini julianne Patho logy and Hemat opath ology (elec troni c signa ture) Not Available [facility] [address] [address] [address], [place], [address], 10/11/2024 23:11:52 10/09/19 25 10/11/2024 TISSU E PATHO LOGY A source Ectoc ervix , 2 o'doc ck, biops y Not Available [facility] [address] [address] [place], [address], 10/11/2024 23:11:52 10/09/19 25 10/11/2024 TISSU E PATHO LOGY A gross description Speci men is recei juhi in 10% neutr al buffe red forma scot, label ed with multi ple patie nt ident ifier (s) and consi sts of two fragm ents of tissu e aggre gatin g to 0.6 x 0.3 x 0.1 cm, irreg ular in shape and yello w-whi te in color . The speci men is entir raz submi tted in one casse tte. Gross exam( s) perfo rmed at: [facility] [place] [address] [facility] [address], [place] [address] Labor atory Direc tor: ROBERTA Mcghee MD Not Available [facility] [address] [address] [place], [address], 10/11/2024 23:11:52 10/09/19 25 10/11/2024 TISSU E PATHO LOGY A diagnosis Low grade squam ous intra epith elial lesio n (BOBO 1) invol ving endoc ervic al gland s. Not Available [facility] [address] [address] [place], [address], 10/11/2024 23:11:52 10/09/19 25 10/11/2024 TISSU E PATHO LOGY B source Ectoc ervix , 11 o'doc ck, biops y Not Available [facility] [address] [address] [place], [address], 10/11/2024 23:11:52 10/09/19 25 10/11/2024 TISSU E PATHO LOGY B gross description Speci men is recei juhi in 10% neutr al buffe red forma scot, label ed with multi ple patie nt ident ifier s and consi sts of one fragm ent of tissu e measu ring 0.5 x 0.3 x 0.2 cm, irreg ular in shape and yello w-whi te in color . The speci men is entir raz submi tted in one casse tte. Not Available [facility] [address] [address] [place], [address], 10/11/2024 23:11:52 10/09/19 25 10/11/2024 TISSU E PATHO LOGY B diagnosis Low grade squam ous intra epith elial lesio n (BOBO 1) invol ving endoc ervic al gland s. Not Available [facility] [address] [address] [place], [address], 10/11/2024 23:11:52 10/09/19 25 10/09/2024 pregn loretta test, urine HCG negati ve Not Available [facility] [address] [facility], [place], [address], 10/09/2024 16:14:59 10/01/19 25 10/01/2024 US, trans vagin al No observ ation record ed. [facility], [place], [address], 10/02/2024 12:03:19 11/27/19 25 11/26/2024 US, trans vagin al No observ ation record ed. bnotzke [address], [place], [address], 11/26/2024 16:30:44 Result Notes None recorded. Problems Name Problem SNOMED Code Status Onset Date Resolution Date Notes Provider Name and Address Organization Details Recorded Time Finding of pattern of menstrual cycle Completed 201507/16/2016 Other specified irregular menstruat ion; Progress: Stable Added By: Alma Rosa Edward Add to Current Problems: NO ProblemSt atus: Resolve Not Available [facility] 2 20:56:15 Dysfuncti onal uterine bleeding Completed 201507/16/2016 Dysfuncti onal uterine bleeding; Location: None Progress: Stable Added By: Alma Rosa Edward Add to Current Problems: YES ProblemSt atus: Resolve Not Available [facility] 2 20:56:16 Diabetes mellitus screening Active 2017 Encounter for screening for diabetes mellitus; Progress: Stable Added By: Bharati Cherry Add to Current Problems: YES ProblemSt atus: Current S creening for diabetes mellitus; Location: None Progress: Stable Added By: Bharati Cherry Add to Current Problems: YES ProblemSt atus: Current Not Available [facility] 2 20:56:14 Endocrine /metaboli c screening Completed 201708/27/2018 Encounter for screening for other suspected endocrine disorder; Progress: Stable Added By: Bharati Cherry Add to Current Problems: NO ProblemSt atus: Resolve S creening for thyroid disorder; Location: None Progress: Stable Added By: Bharati Cherry Add to Current Problems: YES ProblemSt atus: Resolve Not Available [facility] 2 20:56:15 Screening for disorder Active 2017 Encounter for screening for other disorder; Progress: Stable Added By: Bharati Cherry Add to Current Problems: YES ProblemSt atus: Current S creening for other specified condition s; Location: None Progress: Stable Added By: Bharati Cherry Add to Current Problems: YES ProblemSt atus: Current Not Available [facility] 2 20:56:15 Problem Notes None recorded. Procedures Surgical History Date Name Laterality Status Provider Name and Address Organization Details Recorded Time 5 Colposcopy - Cervix completed WILLIAM ABDUL DO [address] [place] [address], [address], [facility] [employer] [facility] 10/09/2024 17:31:09 5 Date of Last Pap Smear completed WILLIAM ABDUL DO [address] [place] [address], [address], [facility] 09/25/2024 19:38:21 Imaging Results Imaging Date Name Status LastModified by Organization Details LastModified Time 10/01/2024 US, transvaginal completed [facility], [place], [address], 10/02/2024 12:03:19 11/26/2024 US, transvaginal completed bnotzke [address], [place], [address], 11/26/2024 16:30:44 Procedure Notes None recorded. Medical Equipment None Reported. Allergies Allergen ID Allergen Name Allergen Category Reaction Reaction Severity Criticality Documentation Date Start Date Code Code System Note Provider Name and Address Organization Details Recorded Time 909354 Product containin g penicilli n (product) medicatio n Not available Not available Not available 06/26/20212018 11567 8001 SNOMED Sever ity: Moder ate; Not Available [employer] 1 01:08:08 107320 losartan medicatio n dizziness Not available [facility] 10/09/20242018 51382 RxNorm Tayler Hall null, [facility] 5 16:21:45 Medications Name Sig Start Date Stop Date Status Note LastModified by Organization Details LastModified Time Prometriu m 200 mg capsule take 1 capsule (200 mg) by oral route once daily in the evening for 10 days 09/18 completed Prometri um 200 mg oral capsule RxNorm: 355235 Allow Substitu tion: True Refill Denied: No Edited by: Kiersten Rowland ) on 10/31/19 20 Stopped by: Kiersten Rowland ) on Not Available Not Available Not Available cyclobenz aprine 10 mg tablet TAKE 1 TABLET BY MOUTH THREE TIMES DAILY NEEDED FOR MUSCLE SPASMS 10/09 completed Not Available Not Available Not Available metformin 500 mg tablet 1 po BID 07/11 completed metFORMI N 500 mg oral tablet RxNorm: 589997 Allow Substitu tion: True Refill Denied: No Refill DateOccu rred: 06/28/20 18 Edited by: Inna Lopez ) on 09/12/19 20 Stopped by: [email or web address](Inna Castillo ) on Not Available Not Available Not Available doxycycli ne hyclate 100 mg capsule TAKE 1 CAPSULE BY MOUTH TWICE DAILY FOR 7 DAYS 09/18 completed Not Available Not Available Not Available clindamyc in HCl 300 mg capsule TAKE 1 CAPSULE BY MOUTH THREE TIMES A DAY 09/18 completed Not Available Not Available Not Available atenolol 100 mg tablet TAKE 1 TABLET BY MOUTH ONCE DAILY active Not Available Not Available No t Available hydrocodo ne 5 mg-acetam inophen 325 mg tablet TAKE 1 TABLET BY MOUTH EVERY 6 HOURS NEEDED FOR PAIN 09/18 completed Not Available Not Available Not Available spironola ctone 100 mg tablet TAKE 1 TABLET BY MOUTH TWICE DAILY active Not Available Not Available No t Available sertralin e 100 mg tablet TAKE 1 TABLET BY MOUTH ONCE DAILY FOR 90 DAYS active Not Available Not Available No t Available clindamyc in HCl 150 mg capsule TAKE 3 CAPSULES BY MOUTH 3 TIMES A DAY FOR 10 DAYS 09/18 completed Not Available Not Available Not Available metronida zole 500 mg tablet TAKE 1 TABLET BY MOUTH EVERY 12 HOURS FOR 7 DAYS 11/26 completed Not Available Not Available Not Available amlodipin e 5 mg tablet TAKE 1 TABLET BY MOUTH ONCE DAILY active Not Available Not Available No t Available ketorolac 10 mg tablet TAKE 1 TABLET BY MOUTH EVERY 6 HOURS NEEDED FOR PAIN 10/01 completed Not Available Not Available Not Available meclizine 25 mg tablet TAKE 1 TABLET BY MOUTH THREE TIMES DAILY NEEDED 10/01 completed Not Available Not Available Not Available norethind mable acetate 5 mg tablet take 1 tablet (5 mg) by oral route once daily for 10 days 09/18 completed norethin drone acetate 5 mg oral tablet RxNorm: 6764744 Allow Substitu tion: True Refill Denied: No Edited by: [email or web address](Inna Castillo ) on 09/12/19 20 Stopped by: jenae(Inna Castillo ) on Not Available Not Available Not Available methylpre dnisolone 4 mg tablets in a dose pack TAKE 6 TABLETS ON DAY 1 DIRECTED ON PACKAGE AND DECREASE BY 1 TAB EACH DAY FOR A TOTAL OF 6 DAYS 09/18 completed Not Available Not Available Not Available albuterol sulfate HFA 90 mcg/actua tion aerosol inhaler INHALE 1-2 PUFFS BY MOUTH EVERY 4 HOURS NEEDED FOR WHEEZING . active Not Available Not Available No t Available hydroxyzi ne HCl 10 mg tablet TAKE 1 TABLET BY MOUTH TWICE DAILY active Not Available Not Available No t Available fluticaso ne propionat e 50 mcg/actua tion nasal spray,michele pension ADMINIST ER 1 SPRAY INTO EACH NOSTRIL ONCE DAILY active Not Available Not Available No t Available metformin ER 500 mg tablet,ex tended release 24 hr TAKE 4 TABLETS BY MOUTH ONCE DAILY WITH DINNER active Not Available Not Available No t Available Ortho Tri-Cycle n LO (28) 0.18 mg/0.215 mg/0.25 mg-25 mcg tablet 1 tab daily. pt desires generic 07/15 completed Ortho Tri-Cycl en Lo 28 Triphasi c Tablet RxNorm: 297432 Allow Substitu tion: True Refill Denied: No Edited by: mónica mora(Kiersten Cross ) on 06/12/20 19 Stopped by: mónica mora(Kiersten Cross ) on 07/15/20 19 Not Available Not Available Not Available Sprintec (28) 0.25 mg-0.035 mg tablet 1 tab po daily 07/11 completed Sprintec 35mcg/0. 25mg Tablet Allow Substitu tion: True Refill Denied: No Not Available Not Available Not Available TriNessa (28) 0.18 mg(7)/0.2 15 mg(7)/0.2 5 mg(7)-35 mcg tablet 02/15 completed TriNessa 28 Triphasi c Tablet RxNorm: 197758 Allow Substitu tion: True Refill Denied: No Refill Note: Changed to Drug in Same Class Refill DateOccu rred: 12/01/19 19 Not Available Not Available Not Available amlodipin e 5 mg-atorva statin 10 mg tablet 06/28 completed Amlodipi ne Besylate /Atorvas tatin Calcium 10mg/10m g Tablet RxNorm: 728660 Allow Substitu tion: True Refill Denied: No Refill DateOccu rred: 05/17/20 16 Not Available Not Available Not Available spironola ctone 09/18 completed Spironol actone Allow Substitu tion: True Refill Denied: No Refill DateOccu rred: 06/28/20 18 Edited by: mónica mora(Kiersten Cross ) on 06/12/20 19 Stopped by: mónica mora(Kiersten Cross ) on Not Available Not Available Not Available Qvar 06/14 completed QVAR 40mcg/1a ctuation Oral Inhaler RxNorm: 929927 Allow Substitu tion: True Refill Denied: No Refill DateOccu rred: 05/17/20 16 Edited by: jasmeet marvin(Pedro huerta Evelyn ) on 06/14/20 16 Stopped by: jasmeet [email or web address](Pedro huerta Evelyn ) on 06/14/20 16 Not Available Not Available Not Available Flonase Allergy Relief 06/12 completed Flonase Allergy Relief Allow Substitu tion: True Refill Denied: No Refill DateOccu rred: 05/17/20 16 Edited by: Celeste Shepherd ) on 06/12/20 19 Stopped by: cyn( Celeste Carl ) on 06/12/20 19 Not Available Not Available Not Available Trulicity 4.5 mg/0.5 mL subcutane ous pen injector INJECT THE CONTENTS OF 1 PEN UNDER THE SKIN ONCE WEEKLY 10/01 completed Not Available Not Available Not Available Ozempic 2 mg/dose (8 mg/3 mL) subcutane ous pen injector INJECT 2 MG SUBCUTAN EOUSLY ONCE WEEKLY active Not Available Not Available No t Available Vitals Date Recorded Body height Body mass index (BMI) Body weight Systolic blood pressure Diastolic blood pressure Provider Name and Address Organization Details Last Updated DateTime 09/18/2024 172.72 cm 52.6 kg/m2 874438.9 6 g 130 mm[Hg] 78 mm[Hg] Cleopatra Hoffman [facility] [employer] [facility] 5 16:47:36 Date Recorded Body height Body mass index (BMI) Body weight Systolic blood pressure Diastolic blood pressure Provider Name and Address Organization Details Last Updated DateTime 10/01/2024 172.72 cm 52 kg/m2 582427.3 1 g 120 mm[Hg] 80 mm[Hg] Demetria [place] [employer] [facility] 5 16:24:07 Date Recorded Body height Body mass index (BMI) Body weight Systolic blood pressure Diastolic blood pressure Provider Name and Address Organization Details Last Updated DateTime 10/09/2024 172.72 cm 52.2 kg/m2 050404.3 4 g 130 mm[Hg] 78 mm[Hg] Tayler Hall [facility] [employer] [facility] 5 16:55:43 Date Recorded Body height Provider Name an d Address Organization Details Last Updated DateTime 11/26/2024 172.72 cm Simone Nazario [facility] [employer] [facility] 11/26/2024 15:59:01 Social History Question Answer Notes LastModified by [employer] Details LastModified Time Tobacco Smoking Status Never Smoker Cleopatra Hoffman null, [facility] 09/18/2024 16:39:08 Are You Blind Or Do You Have Difficulty Seeing? No [email or web address] Information not available 11/26/2024 Are You Deaf Or Do You Have Serious Difficulty Hearing? No Information not available 11/26/2024 What Type Of Diet Are You Following? REGULAR [email or web address] Information not available 09/18/2024 Which Illicit Or Recreational Drugs Have You Used? Marijuana [email or web address] Information not available 09/18/2024 How Many Children Do You Have? 0 [email or web address] Information not available 09/18/2024 What Is Your Relationship Status? Single [email or web address] Information not available 09/18/2024 Are You Sexually Active? Yes [email or web address] Information not available 09/18/2024 Have You Used IV Drugs? No [email or web address] Information not available 09/18/2024 Sex: Unknown Functional Status Question Answer Note LastModified by [employer] Details LastModified Time Do you use any illicit or recreational drugs? Yes [email or web address] Information not available 09/18/2024 Do you or have you ever used any other forms of tobacco or nicotine? No [email or web address] Information not available 09/18/2024 What is your level of alcohol consumption? Occasional [email or web address] Information not available 09/18/2024 Are you currently employed? Yes [email or web address] Information not available 09/18/2024 Mental Status None recorded. Family History Relationship Description Onset Age of this Age Resolved Age Notes LastModified by Organization Details LastModified Time Father No current problems or disability [email or web address] Not available 09/05 16:38:22 Mother No current problems or disability [email or web address] Not available 09/05 16:38:22 Medical History Condition Response High Blood Pressure Y Diabetes Mellitus (non-insulin dependent ) Y Anxiety Disorder Y Seasonal allergies Y High Cholesterol Y Gynecological History Statement/Question Response Date of Last Colonoscopy Flow Moderate Date of last HPV 09/18/2024 Date of LMP 11/18/2024 Most Recent Bone Density Date of Last Pap Smear 09/18/2024 Most Recent Mammogram Current Control Method None Age at Menarche 11 Obstetrics History GPAL:G 3 P 0 0 3 0 Type Value Full Term 0 Spontaneous 3 Living 0 Total 3 Immunizations Vaccine Type Date Status Note Provider Sujit arana and Address Organization Details Recorded Time influenza nasal, unspecified formulation 08/05/2024 completed Demetria davis, [facility] IV 10/01/2024 16:18:50 Past Encounters Encounter ID Performer Location Encounter Start Date Encounter Closed Date Diagnosis/Indication Diagnosis SNOMED-CT Code Diagnosis ICD10 Code Diagnosis Note [id number] WILLIAM ABDUL DO [facility] [address] [place] [address] 09/18/2024 16:26:26 09/18/2024 17:45:38 Gynecologic examination 57847467 Z01.419 Screening for malignant neoplasm of cervix 400536464 Z12.4 h/o abnormal paps Surveillan ce of contraception 476611013 Z30.40 Depression screening 171 063533 Z13.31 See Intake Screening - PHQ Abnormal u terine bleeding 2017223242 9100 N93.9 Currently getting periods monthly and has 7 day periods, 3 of which are heavy requiring to change pads every 1-2 hours. Had history of oligomenor valorie but has lost 60 lbs and now get regular periods Discussed causes of abnormal uterine bleeding, including structural (polyps, fibroids), hormonal including anovulatio n, hyperplasi a, and rarely cancer. Reviewed evaluation with pelvic US and endometria l biopsy. Briefly discussed options available for treatment depending on the results of evaluation including hormonal options (OCPs, progestins , Mirena), endometria l ablation, and other surgery. [id number] [facility] [address] [place] [address] 10/01/2024 15:20:10 10/02/2024 15:06:05 Leiomyoma 2816916344 20490 D21.9 NO fibroid visualized , does have Rt ovarian cyst measuring 3.8, reviewed torsion precaution s and will FU in 2 months for repeat US History of chlamydial infection 753751051 Z86.19 She was treated ~3 weeks ago however unsure of partner was and had unprotecte d sex with him. Needs RUDY when she comes back for her colpo [id number] WILLIAM ABDUL, [facility] [address] [place] [address] 10/09/2024 16:04:33 10/11/2024 16:30:38 Low grade squamous intraepithelial lesion on cervical Papanicolaou smear [id number] 9105 R87.612 34 y.o. here for colposcopy for Pap test: LSIL w/ +HPV - Colpo satisfacto ry- Impression : BOBO 1 vs BOBO 2- Biopsy taken at 2 and 11 o'clock- All questions answered, pelvic rest x 3 days recommende d- Will contact via Portal with results if normal and schedule follow up PRN if not Human pankaj llomavirus deoxyribonucleic acid detected, high risk on cervical specimen [id number] R87.810 Laboratory procedure 108 [id number] Z01.812 Chlamydial infection 105 682199 A74.9 [id number] [facility] [address] [place] [address] 11/26/2024 14:51:04 11/26/2024 16:33:15 Cyst of right ovary [id number] N83.201 Follow up for 3.8 cm rt ovarian cyst seen on previous TVUS. TVUS today shows ovaries and uterus WNL. Health Concerns Section Related Observation LastModified by Organization Detai ls LastModified Time None Recorded Concern Status LastModified by Organization Details LastModified Time None Recorded Advance Directives Directive None Recorded Payers Insurance Date Sequence Insurance Name Policy Number Policy Seth Covered Member ID Seth Member ID Guarantor Name 11/23/2024 1 [employer] Belen Chaudhari [id number] Belen Chaudhari Notes Date Note Type Note Provider Name and Address Organization Details Recorded Time 09/18/2024 text/html Belen 34 y/o new patient to re -establish (last seen 2019) here for annual well women visit, LMP 08/27/2024, control none, [id number]||2025-01-17 17:21:00|XR_ITS|ELZIMMILIZ|Imaging|[id number]|"XR chest 2V Ordering provider: Nelson Cowan MD History: 34 years Female with . chest pain WITH SHORTNESS OF BREATH . Comparison: April 09, 2016 FINDINGS: MEDIASTINUM: The cardiac silhouette is not enlarged. LUNGS: No infiltrates, effusions or pneumothorax. OTHER: No free air under the diaphragm. IMPRESSION: No acute cardiopulmonary pathology. Reviewed, dictated and finalized at location A. IMPRESSION: No acute cardiopulmonary pathology. "
--- OUTSIDE RECORDS SUMMARY | 2025-01-17 16:31 | XMS_ITS | Encounter Summary ---
Author Organization [facility] Address [address] [place] [address] Care Team Providers Care Building Performance Consultant Name Role Phone Harrison Patel MD Primary Care Provider [phone] Encounter Details Date Type Department Care Team (Late st Contact Info) Description 03/02/2023 Zones Message Enc [facility] Medical Group - [facility] [address] [place] [address] [place], [facility] Provider Air Quality Message Social History Tobacco Use Types Packs/Day Years Used Date Smoking Tobacco: Never Smokeless Tobacco: Never Alcohol Use Standard Drinks/Week Comments Not Currently [...] CDT Gender Identity Female 11/09/2021 6:51 AM BREWMASTER Sexual Orientation Straight 11/09/2021 6: 51 AM BREWMASTER documented as of this encounter Plan of Treatment Not on file documented as of this encounter Visit Diagnoses Not on filedocumented in this encounter Additional Health Concerns Assessment Noted Time PHQ-9 Depression Total Score: 2 11/10/19 11:07 AM BREWMASTER documented as of this encounter Care Teams Building Performance Consultant Relationship Specialty Start Date End Date Harrison Patel MD [address] [place] [address] PCP - General PULMONARY DISEASE 09/02/22 documented as of this encounter
--- NOTE | 2025-01-17 16:38 | ECG_ITS ---
Test Date: 2025-01-17 16:43:15 Measurements Intervals [place] Rate: 68 P: 34 DC: 182 QRS: -2 QRSD: 106 T: -7 QT: 412 QTc: 440 Interpretive Statements SINUS RHYTHM MINIMAL VOLTAGE CRITERIA FOR LVH, CONSIDER NORMAL VARIANT [MEETS CRITERIA IN ONE OF: R(aVL), S(V1), R(V5), R(V5/V6)+S(V1)] NONSPECIFIC ST AND T-WAVE ABNORMALITY ABNORMAL ECG No previous ECG available for comparison Electronically Signed On 01-18-2025 09:48:24 CDT by Eduin Nino M.D.
[2025-01-17 17:09] LABS: Basophils Absolute Auto 0.1 K/mm3 (0.0-0.1); Basophils Percent Auto 0.8 % (0.2-1.2); Eosinophils Absolute Auto 0.3 K/mm3 (0-0.3); Eosinophils Percent Auto 3.5 % (0-4.4); Hematocrit 36.8 % (37.0-47.0); Immature Granulocyte Absolute 0.02 K/mm3 (0.00-0.031); Immature Granulocyte Percent A 0.2 % (0-0.5); Lymphocytes Absolute Auto 2.92 K/mm3 (0.9-3.2); Lymphocytes Percent Auto 33.8 % (18.3-44.2); Mean Corpuscular HGB Conc 32.6 g/dl (32-36); Mean Corpuscular Hemoglobin 28.9 pg (26-34); Mean Corpuscular Volume 88.7 fl (80-100); Mean Platelet Volume 9.2 fl (7.4-10.4); Monocytes Absolute Auto 0.5 K/mm3 (0.1-0.6); Monocytes Percent Auto 5.6 % (2.6-8.5); Neutrophils Absolute Auto 4.8 K/mm3 (1.3-6.7); Neutrophils Percent Auto 56.1 % (45.5-73.1); Platelet Count Result 208 k/mm3 (150-375); Red Blood Count 4.15 M/mm3 (4.2-5.4); Red Cell Distribution Width 13.4 % (11.5-14.5); White Blood Count 8.6 K/mm3 (4.5-10.0)
[2025-01-17 17:18] LABS: Alanine Aminotransferase 21 U/L (6-35); Albumin Level 4.4 g/dL (3.5-5.1); Alkaline Phosphatase 59 U/L (38-126); Anion Gap 8 mmol/L (4-12); Aspartate Amino Transferase 29 U/L (14-36); Bilirubin,Total 0.6 mg/dL (0.2-1.3); Blood Urea Nitrogen 14 mg/dL (7-17); Calcium 9.8 mg/dL (8.4-10.2); Carbon Dioxide 26 mmol/L (22-30); Chloride 104 mmol/L (98-107); Estimated CRCL calculation 132 ml/min; Estimated Glomerular Filt Rate > 60; Glucose 99 mg/dL (65-110); Lipase 50 U/L (23-300); Potassium 3.7 mmol/L (3.4-5.0); Sodium 138 mmol/L (137-145)
[2025-01-17 17:22] LABS: INR 1.1; Partial Thromboplastin Time 30.6 Seconds (22.3-36.8); Prothrombin Time 14.4 Seconds (11.1-14.7)
[2025-01-17 17:30] LABS: Troponin I < 0.012 ng/mL (0.000-0.034)
--- OUTSIDE RECORDS SUMMARY | 2025-01-17 18:19 | XMS_ITS | Clinical Summary ---
Author Organization [facility] Address [address] [facility] [place] [facility] [place] [address] Care Team Providers Care Systems Technologist Name Role Phone Karol García APRN-CAUSTIC PLANT WORKER Primary Care Provider Source Comments [facility],non-owned Affiliates and Associated Physician Practices is amultiple site organization consisting of ambulatory clinics and hospital sitesin [place], [place], [place] and [place]. This disclosure is being madepursuant to the Care Everywhere program and may not contain all information available regarding this patient. Last updated 18.[facility] Allergies Active Allergy Reactions Criticality Noted Date [...] fluticasone propionate (Flonase) 50 MCG/ACT nasal spray [place] 1 (one) spray into each nostril as [...] 19 Immunizations Immunization Administration Dates Next Due MeetMeTix primary monoval ent 12+ yr 0.3mL Purple [...] this topic Insurance MEDICAID - OUT OF [facility] Advance Directives Documents on File Type Date Recorded Patient Principal Technical Architect Expl anation Adv Directive/Living Will/POA 04/10/2016 n/a Care Teams Systems Technologist Relationship Specialty Start Date End Date Karol García APRN-CNP [address] [facility] [address] [place], [place] [id number] PCP - General 02/20/19
--- OUTSIDE RECORDS SUMMARY | 2025-01-17 18:19 | XMS_ITS | Clinical Summary ---
Author Organization [facility] Address [address] [place] [address] Care Team Providers Care Sander Portable Machine Name Role Phone Harrison Patel MD Primary Care Provider [phone] Allergies Active Allergy Reactions Criticality Noted Date [...] CDT Gender Identity Female 11/09/2021 6:51 AM STRENGTH AND CONDITIONING COACH Sexual Orientation Straight 11/09/2021 6: 51 AM STRENGTH AND CONDITIONING COACH Last Filed Vital Signs Vital Sign Reading Time Taken Comments Blood Pressure 162/96 09/02/2022 9:28 PM STRENGTH AND CONDITIONING COACH Pulse 69 09/02/2022 9:28 PM STRENGTH AND CONDITIONING COACH Temperature 35.7 C (96.2 F) 09/02/2022 9:28 PM STRENGTH AND CONDITIONING COACH Respiratory Rate 18 09/02/2022 9:28 PM STRENGTH AND CONDITIONING COACH Oxygen Saturation 96% 09/02/2022 9:28 PM STRENGTH AND CONDITIONING COACH Inhaled Oxygen Concentration - - Weight 169.2 kg (373 lb 0.3 oz) 09/02/2022 9:28 PM STRENGTH AND CONDITIONING COACH Height 172.7 cm (5' 8 ) 09/02/2022 9:28 PM STRENGTH AND CONDITIONING COACH Body Mass Index 56.72 09/02/2022 9:28 PM STRENGTH AND CONDITIONING COACH Plan of Treatment Health Maintenance Due Date [...] Vaccine (2023-2 5 season) 2024 PHQ-2 (Physician [place]) 09/05/2024 Meningococcal Vaccine Aged Out 07/26/2007 No [...] patient's age to complete this topic Insurance [facility] Care Teams Sander Portable Machine Relationship Specialty Start Date End Date Harrison Patel MD [address] [place] [address] PCP - General PULMONARY DISEASE 09/02/22
--- OUTSIDE RECORDS SUMMARY | 2025-01-17 18:19 | XMS_ITS | Encounter Summary ---
Author Organization [facility] Address [address] [place] [address] Care Team Providers Care Account Classification Clerk Name Role Phone Harrison Patel MD Primary Care Provider [phone] Encounter Details Date Type Department Care Team (Late st Contact Info) Description 03/02/2023 [facility] Lab Message Enc [facility] Medical Group - [facility] [address] [place] [address] [place], [facility] Provider Air Quality [...] CDT Gender Identity Female 11/09/2021 6:51 AM BEET END SUPERVISOR Sexual Orientation Straight 11/09/2021 6: 51 AM BEET END SUPERVISOR documented as of this encounter Plan of Treatment Not on file documented as of this encounter Visit Diagnoses Not on filedocumented in this encounter Additional Health Concerns Assessment Noted Time PHQ-9 Depression Total Score: 2 11/10/19 11:07 AM BEET END SUPERVISOR documented as of this encounter Care Teams Account Classification Clerk Relationship Specialty Start Date End Date Harrison Patel MD [address] [place] [address] PCP - General PULMONARY DISEASE 09/02/22 documented as of this encounter
--- OUTSIDE RECORDS SUMMARY | 2025-01-17 18:19 | XMS_ITS | Referral Summary ---
Author Organization 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 CH: BEV Report ID: [id number] Reading Location: [id number] Procedure Note Jay Jimenez Jr., MD - [...] Jay Jimenez M.D. CH: BEV Report ID: [id number] Reading Location: [id number] Eden Quan MD IMG XR PROCEDURES Shanon [...] by Jay Jimenez M.D. CH: Report ID: [id number] Reading Location: [id number] Procedure Note Jay Jimenez Jr., MD - [...] Jay Jimenez M.D. CH: BEV Report ID: [id number] Reading Location: [id number] us Eden Quan MD IMG XR PROCEDURES Shanon l Result * POCT glucose (12/08/2024 9:06 AM CDT) [facility] Glucose, POC 111 70 - 199 mg/dL Comment:Testing performed by : [facility], [address] [place] [address]., [id number] Blood 12/08/2024 9:06 AM CDT 12/08/2024 9:06 AM CDT us Notinfile Unknown LAB POCT ORDERABLES - DEVICE F inal Result [facility] [address] [facility] Department [place] [address] from Last 3 Months Insurance [facility] BLUE ACCESS OOS Member Subscriber Plan / Payer (Ef fective 2021-Present) Name:Fara Belen Orourke Relation to Subscriber:Self Name:Chaudhari, Belen C Payer ID:[id number] (NAIC) Group ID:[id number] Type:[facility] Address: [address] [employer] BLUE ACCESS OOS Care Teams Strap Cutting Machine Operator Relationship Specialty Start Date End Date Karol García NP PCP - General 10/26/19
--- OUTSIDE RECORDS SUMMARY | 2025-01-17 18:19 | XMS_ITS | Clinical Summary ---
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 CH: Report ID: [id number] Reading Location: [place] [address] Procedure Note Jay Jimenez Jr., MD - [...] by Jay BoatengD. CH: BEV Report ID: [id number] Reading Location: [id number] Eden Quan MD IMG XR PROCEDURES Shanon [...] Jay Jimenez M.D. CH: BEV Report ID: [id number] Reading Location: [id number] Procedure Note Jay Jimenez Jr., MD - [...] by Jay Jimenez M.D. CH: Report ID: [id number] Reading Location: [place] [address] us Eden Quan MD IMG XR PROCEDURES Shanon l Result * POCT glucose (12/08/2024 9:06 AM CDT) [facility] Signature Glucose, POC 111 70 - 199 mg/dL Comment:Testing performed by : [facility], [address] [place] [address], [place]., [address] Blood 12/08/2024 9:06 AM CDT 12/08/2024 9:06 AM CDT us Notinfile Unknown LAB POCT ORDERABLES - DEVICE F inal Result [facility] [address] [facility] Department [place] [address] from Last 3 Months Insurance [facility] IDPA [employer] ACCESS OOS [facility] IDPA [facility] O [facility] Care Teams Flow Specialist Relationship Specialty Start Date End Date Karol García NP PCP - General 10/26/19
--- NOTE | 2025-01-17 18:20 | ED_ITS ---
HPI - Chest Pain General Chief Complaint: Chest Pain Stated Complaint: LUQ abd/Chest and upper back pain x 1 wk Time Seen by Provider: 01/17/25 17:35 History of Present Illness HPI narrative: Patient presenting here with 1 week of intermittent left-sided epigastric pain that goes up into her chest and sometimes to her upper back, comes and goes, has been increasing in frequency. She wants to make sure it is not her heart. No focal numbness or weakness. Related Data Allergies Allergy/AdvReac Type Severity Reaction Status Date / Time losartan Allergy Severe Vertigo Verified 01/17/25 16:30 penicillin Allergy Unknown Cough Uncoded 05/10/18 12:22 Review of Systems 2 Review of Systems: All systems reviewed & are unremarkable except as noted in HPI and below Exam 2 Narrative: EXAMINATION OF ORGAN SYSTEMS/BODY AREAS: Constitutional: Vital signs per nursing GENERAL:[No acute distress, non-toxic appearing.] HEAD: Normal with no signs of head trauma. EYES: EOMI, conjunctiva normal ENT: Hearing grossly intact LUNGS: Nonlabored breathing. HEART: [Regular rate and rhythm], normal radial pulses ABD: [Soft], [nontender to palpation] EXT: Normal range of motion SKIN: [No rashes or lesions.] NEURO: [Alert and oriented x 3. No gross focal sensory or strength deficits.] PSYCH: Normal affect MDM - Chest Pain MDM Narrative Medical decision making narrative: ED COURSE AND MEDICAL DECISION MAKIN-year-old female presenting with chest pain. EKG done in triage negative for acute ischemic changes. Cardiac workup is initiated. EKG: Performed in triage and interpreted by me. Normal sinus rhythm. Rate 68. Normal axis. AL normal. QRS duration normal. QTc normal. No pathologic Q waves. No ST segment elevation or depression to suggest acute ischemia. No RV strain pattern. HEART score is 0 with no acute ischemic changes on EKG and negative troponin making ACS unlikely. Negative PERC making PE unlikely. Presentation not consistent with dissection or aneurysm without pulse deficits risk factors, and patient extremely well-appearing here, resting on her stomach looking at her phone in no distress whatsoever. CXR negative for mediastinal widening. No abdominal pain or signs of sepsis that would be concerning for esophageal perforation or mediastinitis. No cardiomegaly or JVD to suggest pericardial effusion/tamponade. HEART Score: [0]. (Risk of major adverse cardiac events over 6 weeks: Score of 0-3 is low risk <2% ; Score of 4-6 is moderate risk ~12-15%; Score of 7-12 is high risk ~50%). I do suspect most likely gastritis. On repeat evaluation just prior to discharge, the patient is no acute distress. I had a long discussion with the patient and with shared decision making, she is comfortable with outpatient management. She was given clear return instructions by myself in person as well as on discharge paperwork. Procedures: Pulse oximetry interpretation - not hypoxic. EKG interpretation. Review of medical records. Lab Data 01/17/25 17:04 01/17/25 17:04 Labs: Lab Results 01/17/25 Range/Units 17:04 WBC 8.6 (4.5-10.0) K/mm3 RBC 4.15 L (4.2-5.4) M/mm3 Hgb 12.0 (12.0-15.0) g/dL Hct 36.8 L (37.0-47.0) % MCV 88.7 (80-100) fl MCH 28.9 (26-34) pg MCHC 32.6 (32-36) g/dl RDW 13.4 (11.5-14.5) % Plt Count 208 (150-375) k/mm3 MPV 9.2 (7.4-10.4) fl Immature Gran % (Auto) 0.2 (0-0.5) % Neut % (Auto) 56.1 (45.5-73.1) % Lymph % (Auto) 33.8 (18.3-44.2) % [place] % (Auto) 5.6 (2.6-8.5) % Eos % (Auto) 3.5 (0-4.4) % Baso % (Auto) 0.8 (0.2-1.2) % Lymph # (Auto) 2.92 (0.9-3.2) K/mm3 [place] # (Auto) 0.5 (0.1-0.6) K/mm3 Eos # (Auto) 0.3 (0-0.3) K/mm3 Baso # (Auto) 0.1 (0.0-0.1) K/mm3 Abs Immat Gran (auto) 0.02 (0.00-0.031) K/mm3 Absolute Neuts (auto) 4.8 (1.3-6.7) K/mm3 Absolute Nucleated RBC 0.000 (0.0-0.012) K/mm3 Nucleated RBC % 0.0 (0.0-0.2) % PT 14.4 (11.1-14.7) Seconds INR 1.1 APTT 30.6 (22.3-36.8) Seconds Sodium 138 (137-145) mmol/L Potassium 3.7 (3.4-5.0) mmol/L Chloride 104 (98-107) mmol/L Carbon Dioxide 26 (22-30) mmol/L Anion Gap 8 (4-12) mmol/L BUN 14 (7-17) mg/dL Creatinine 0.82 (0.7-1.0) mg/dL Estim Creat Clear Calc 132 ml/min Estimated GFR > 60 (59 - ) Glucose 99 (65-110) mg/dL Calcium 9.8 (8.4-10.2) mg/dL Total Bilirubin 0.6 (0.2-1.3) mg/dL AST 29 (14-36) U/L ALT 21 (6-35) U/L Alkaline Phosphatase 59 (38-126) U/L Troponin I < 0.012 (0.000-0.034) ng/mL Total Protein 8.0 (6.3-8.2) g/dL Albumin 4.4 (3.5-5.1) g/dL Lipase 50 (23-300) U/L Discharge Plan Discharge Clinical Impression: Atypical chest pain Patient Disposition: Home Condition: Stable Instructions: Chest Pain (ED), Diet for Stomach Ulcers and Gastritis (ED) Additional Instructions: Please follow up with your doctor; you can always return for any further issues. Try to avoid any fried or greasy foods, spicy foods, caffeine, alcohol. Patient Language: [place] Prescriptions: New famotidine 20 mg tablet 20 mg PO DAILY Qty: 30 0RF alum-mag hydroxide-simeth [Maalox Advanced] 200-200-20 mg/5 mL suspension 10 ml PO QID PRN (Reason: dyspepsia) Qty: 200 0RF Rx Instructions: administer between meals and at bedtime ondansetron 4 mg tablet,disintegrating 4 mg PO Q8H PRN (Reason: nausea and vomiting) Qty: 10 0RF Follow-up/Referrals: Alirio,Bebo Parry MD [Primary Care Provider] -
[2025-01-17 18:40] VITALS: BP 136/80; PULSE 86; RESP 16; TEMP 36.6; O2SAT 100
== END 2025-01-17 18:40 | disposition home or self-care (01) ==
PROVIDERS: Emergency Medicine; Emergency Provider Emergency Medicine; PCP Family Medicine
DX: R07.89 Other chest pain (principal)
CPT/HCPCS: 36415; 71046; 80053; 83690; 84484; 85025; 85610; 85730; 93005; 99284